=== PATIENT | female | born 1980 | race Caucasian/White ===

== ENCOUNTER → 2019-05-14 | Outpatient (REF) | payer OTHER | LOC: M LAB LCGH 11:44 | PROVIDERS: ATTEND Obstetrics & Gynecology Obstetrics | DX: Z12.4 Encounter for screening for malignant neoplasm of cervix (principal) ==

== ENCOUNTER 2022-10-06 15:41 | Outpatient (CLI) | payer OTHER ==
[~2022-10-06] VITALS: Ht 157.5 cm; Wt 97.7 kg
[2022-10-06 16:00] VITALS: BP 163/94
[2022-10-06] MEDS ORDERED: BEZLOTOXUMAB 1,000 MG in NS 100 ML IV ONE (16:30)
[2022-10-06 18:13] VITALS: BP 131/74
== END 2022-10-06 18:15 | disposition home or self-care (01) ==
LOC: M INFU 15:41
PROVIDERS: ATTEND Internal Medicine Infectious Disease
DX: A04.71 Enterocolitis due to Clostridium difficile, recurrent (principal)
CPT/HCPCS: 96365; J0565